=== PATIENT | female | born 1975 | race Two or more races ===

== ENCOUNTER → 2016-06-04 | Outpatient (CLI) | payer OTHER ==
[~2016-06-04] MED LIST: ADVIL200 M2 PO; GLUCOPHAGE500 MG PO; LIPITOR40 MG PO; METOPROLOL TAR25 MG
--- NOTE | ~2016-06-04 | CT2 ---
[facility] A Service [facility] RADIOLOGY TEXT RESULTS PATIENT: FATMATA REYES LOCATION: [facility] : 79 UNIT #: [id number] AGE: [address]: Pepe Ordonez MD SEX: F ORDER DR: [id number] [facility] [place], [place] [address] [id number] O MR#: [id number] Acc #: [id number] NAME: FATMATA REYES : 1975 SEX: F STUDY DATE/TIME: 06/04/2016 14:40 UNIT: [facility] ROOM: STUDY DESCRIPTION: CT Abd and Pelv W Cont Attending Physician: Pepe Ordonez Jr., M.D. Referring Physician: Pepe Ordonez Jr., M.D. Ordering Physician: Pepe Ordonez Jr., M.D. Primary Care Physician: Matthew Baca M.D. MEDICAL IMAGING REPORT This report is preliminary unless electronic signature is present EXAM CT abdomen and pelvis with contrast. INDICATIONS Right lower quadrant abdominal pain for the past year off and on. PROCEDURE Contrast-enhanced CT of the abdomen and pelvis, 100 mL of Isovue-370. This CT exam was performed with one or more of the following radiation dose reduction techniques: automatic exposure control, adjustment of mA and/or kV according to patient size, and iterative reconstruction. COMPARISON 11/24/2012 FINDINGS ABDOMEN WITH CONTRAST: Included lung bases are clear. Descending thoracic aorta is prominent measuring 3.6 cm. It previously measured 3.3 cm. ABDOMEN WITH CONTRAST: The liver, spleen, kidneys, adrenal glands, pancreas and gallbladder are unremarkable. There is a moderate volume of stool in the right side of the colon. Appendix not well seen but no pericecal inflammation. No abdominal fluid collection. PELVIS WITH CONTRAST: Suspected fibroid in the anterior uterus measuring 4.8 cm. No aggressive-appearing bone lesion. IMPRESSION 1. No definite acute findings. The appendix is not well seen but there is no pericecal inflammation. [facility] A Service [facility] RADIOLOGY TEXT RESULTS PATIENT: FATMATA REYES LOCATION: [facility] : 79 UNIT #: [id number] AGE: [address]: Pepe Ordonez MD SEX: F ORDER DR: 2. Fibroid in the uterus. 3. Ectasia of the descending thoracic aorta, slightly larger than on 2013. Dictated by... Ricardo Balderrama M.D. THIS IS AN ELECTRONICALLY VERIFIED REPORT Ricardo Balderrama M.D. at 06/05/2016 7:19 AM SALVATORE/madhav TD: 06/04/2016 23:39 JOB #: [id number] MEDICAL IMAGING REPORT Page 1 of 1 COPY
[2016-06-04 17:01] LABS: POC - CREATININE 0.78 mg/dL (0.44-1.03); POC - GFR >60.0 mL/min (>60)
== END | disposition home or self-care (01) ==
LOC: CCAT 12:55
PROVIDERS: Surgery
DX: K40.90 Unilateral inguinal hernia, without obstruction or gangrene, not specified as recurrent (principal); R10.31 Right lower quadrant pain; D25.9 Leiomyoma of uterus, unspecified; I77.810 Thoracic aortic ectasia
CPT/HCPCS: 74177; 82565; Q9967

== ENCOUNTER → 2016-07-23 | Outpatient (CLI) | payer OTHER ==
--- NOTE | ~2016-07-23 | EKG ---
PATIENT: FATMATA REYES UNIT #: [id number] Ventricular Rate: 65 BPM Atrial Rate: 65 BPM P-R Interval: 150 ms QRS Duration: 72 ms Q-T Interval: 396 ms QTC Calculation(Bezet): 411 ms P Talpa: 18 degrees Calculated R Talpa: 42 degrees Calculated T Talpa: 12 degrees Diagnosis Line: Normal sinus rhythm Diagnosis Line: Normal ECG Diagnosis Line: No previous ECGs available Diagnosis Line: Confirmed by CHARLIE PEGUERO MD ([id number]) on Diagnosis Line: 07/23/2016 3:21:23 PM INTERPRETING MD: SUDHIR LIND
[2016-07-23 11:32] LABS: CALCIUM SERUM 9.7 mg/dL (8.4-10.2); CREATININE SERUM 0.5 mg/dL (0.6-1.4); GLOM FILT RATE Estimated 121.9 mL/min (>60); POTASSIUM 4.3 mmol/L (3.5-5.1)
== END | disposition home or self-care (01) ==
LOC: CAMB 09:00
PROVIDERS: Surgery
DX: Z01.818 Encounter for other preprocedural examination (principal); K40.90 Unilateral inguinal hernia, without obstruction or gangrene, not specified as recurrent
CPT/HCPCS: 36415; 80048; 93005

== ENCOUNTER → 2016-08-01 | Day surgery (SDC) | payer OTHER ==
--- NOTE | ~2016-08-01 | OR ---
Unit #: [id number] #: [id number] Patient: FATMATA REYES [id number] [address] [place], [place] [address] [id number] O MR#: [id number] NAME: FATMATA REYES ROOM: Date of Procedure: 08/01/2016 Admission Date: 08/01/2016 Surgeon: Pepe Ordonez Jr., M.D. : 1975 Attending Physician: Pepe Ordonez Jr., M.D. Primary Care Physician: Matthew Baca M.D. OPERATIVE REPORT INDICATION FOR PROCEDURE The patient is a 41-year-old female, who recently presented to the office complaining of intermittent bulging of the right inguinal area. She has had a previous I believe and on examination was noted to have what was felt to be a probable direct inguinal hernia. She is brought in this time for right inguinal hernia repair if her hernia found and exploration of the area. She understands the procedure including the risks, including that of chronic pain, recurrence, infection, and nerve injury, and consents. PREOPERATIVE DIAGNOSIS Probable right direct inguinal hernia. POSTOPERATIVE DIAGNOSIS Probable right direct inguinal hernia, also noting an enlarged right inguinal lymph node, which was removed. ANESTHESIA General with LMA and 0.5% Marcaine with epinephrine locally. PROCEDURE PERFORMED Exploration of right inguinal area with removal of enlarged inguinal lymph node and right inguinal hernia repair using plug and patch technique. DESCRIPTION OF PROCEDURE The patient was positioned in supine position. After being anesthetized, she was prepped and draped in routine fashion for right inguinal hernia repair. A field block was performed on the right inguinal area with 0.5% Marcaine with epinephrine. A transverse incision was made through the right portion of the scar from her previous approximately 3 to 4 inch in length. This was carried down through the subcutaneous tissue down to the external oblique fascia through Guido and Camper fascia. The area below the inguinal ligament revealed a nodular mass, felt to be enlarged nodes. This was dissected free of the surrounding tissue along with some fatty tissue. Several small hemoclips were used and the mass was removed and felt to be an enlarged nodes as noted above. After it was removed, it was sent to pathology. Hemostasis was achieved with Bovie cautery and the fibers of the external oblique were then split from the external ring up past the internal ring. There were no obvious round ligament found. Most of have been removed along with her hysterectomy or . The floor of the inguinal canal revealed a 2 cm or 2.5 cm defect with no evidence of any incarceration. The ilioinguinal nerve was Unit #: [id number] #: [id number] Patient: FATMATA REYES A retracted laterally to avoid any damage and a medium plug was then placed up into the defect and sutured circumferentially with interrupted 0 Ethibond sutures. The patch was placed over the top and sutured to the pubic tubercle and up to both sides towards the area of the internal ring. This was all done with interrupted 0 Ethibond sutures. After the patch was then fastened down to the plug as well as to the fascia of the muscle beneath it with interrupted 0 Ethibond sutures, the wound was irrigated with antibiotic solution. The external oblique was then closed with a continuous 3-0 Vicryl suture over the top of the ilioinguinal nerve without evidence of any entrapment. The Guido and Camper fascia were approximated with interrupted 3-0 Vicryl sutures. Skin edges approximated with stainless-steel skin clips and skin stapling device. Sterile dressings were applied externally. Estimated blood loss less than 50 mL. The patient received less than 1000 mL crystalloid solution during the procedure. Sponges and instruments counts were correct x3. No drains used. No complications. The patient was taken to the recovery room with stable vital signs in satisfactory condition. Dictated by... Pepe Ordonez Jr., MLatonya BLUE/pal TD: 08/02/2016 00:47 JOB #: [id number] OPERATIVE REPORT Page 1 of 1 X Pepe Ordonez MD X PROCEDURE OPERATIVE NOTE
== END | disposition home or self-care (01) ==
LOC: CSUR 09:03
DX: K40.90 Unilateral inguinal hernia, without obstruction or gangrene, not specified as recurrent (principal); R59.0 Localized enlarged lymph nodes; I10 Essential (primary) hypertension; E11.9 Type 2 diabetes mellitus without complications; K21.9 Gastro-esophageal reflux disease without esophagitis; E66.9 Obesity, unspecified; Z79.84 Long term (current) use of oral hypoglycemic drugs; Z88.8 Allergy status to other drugs, medicaments and biological substances; Z79.899 Other long term (current) drug therapy; Z68.28 Body mass index [BMI] 28.0-28.9, adult; Z98.890 Other specified postprocedural states
CPT/HCPCS: 82947; 84703; 88305; C1781; J0131; J0690; J1885; J2250; J2270; J3010